=== PATIENT | female | born 1990 | race Caucasian/White ===

== ENCOUNTER 2016-09-19 20:23 | Emergency (ER) | payer MEDICAID ==
[~2016-09-19] VITALS: Ht 160 cm; Wt 73.0 kg
[~2016-09-19 20:23] MED LIST: PNV1TABL76 MT
[2016-09-19 22:34] VITALS: BP 120/7
== END 2016-09-19 23:49 | disposition home or self-care (01) ==
LOC: ER 20:23
DX: H66.90 Otitis media, unspecified, unspecified ear (principal); H60.90 Unspecified otitis externa, unspecified ear
CPT/HCPCS: 99283